=== PATIENT | female | born 1955 | race Caucasian/White ===

== ENCOUNTER 2016-07-16 14:00 | Outpatient (RCR) | payer MEDICAID ==
--- NOTE | 2016-07-02 11:46 | PT/OT/ST INITIAL EVALUATION ---
Department of Health and Human Services Form Approved Health Care Financing Administration OMB No. [id number] PLAN OF CARE/ASSESSMENT FOR OUTPATIENT REHABILITATION (Complete for Initial Claims Only) 1. PATIENT'S NAME Dinah Chen 2. ACC # [id number] 3. HICN NA 4. PROVIDER NO. [id number] 5. TYPE: PT 6. PRIOR HOSPITALIZATION NA 7. PRIMARY DX Left shoulder and neck pain 8. SECONDARY DX Left shoulder stiffness and weakness 9. ONSET DATE 1 year ago 10. REFERRAL DATE Referral not dated 11. SOC. DATE 06/29/2016 12. TIME OF EVAL 4:04 p.m. to 4:49 p.m. 12. REFERRING PHYSICIAN Doron Lin MD 13. CHARGES/UNITS PT evaluation moderate complexity 85149 Therapeutic exercise 70816, 1 unit 14. G CODES NA 15. PRIOR LEVEL OF FUNCTION; PERTINENT HISTORY (Prior therapy results, reason for referral.) S: Prior to therapy, the patient consented to today's evaluation and treatment. The patient is a 61-year-old female referred to physical therapy by Dr. Lin to address functional limitations secondary to left shoulder and neck pain. Primary Complaint/Mechanism of injury: The patient reports that she has had problems with her left shoulder for about a year. The patient states that it is gradually getting worse. The pain goes into her left forearm and states she has numbness and tingling from the forearm to the side of her face down into her left pec and into her left back. The patient reports there was no significant injury that she can recall. Functional performance/Prior level of function: The patient filled out the [employer] and it rates her as a 50. 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 Therapy History: None for her shoulder. Pain level: The patient rates a current pain level as a 5/10 and describes the pain as a constant ache and it gets to be almost unbearable at night. Obstacles to delivery of care: None noted. Aggravating factors: Include putting on a coat, reaching back behind her and rolling over. Relieving factors: None Diagnostic testing: None noted. Past medical history: Include having 2 mini strokes, depression which is controlled, hypertension which is controlled, left breast cancer 2 years ago in which she had lymph nodes removed and a lumpectomy with radiation and is on a pill for 5 years. The patient has an appointment with oncologist for a regular checkup with a mammogram next week. Past surgical history: Microdiskectomy, which bothers her at times, but nothing like it did before surgery which was about 3 years ago. Lymph node removal and lumpectomy on the left breast. Current medications: 1 or 2 1/4 pills of Percocet daily. A complete list in the chart including amlodipine, Crestor, cyanocobalamin, Dulera, ergocalciferol, letrozole, Lexapro, lorazepam, Metoprolol, oxycodone, Singulair, Vitron C and vitamin D. Leisure activities: Not listed. Activity level: Low. 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 She also tries to walk, but lately her shoulder hurts when she walks. Personal health rating: Listed as good. Patient's Goal: The patient's goal for physical therapy is to have less pain and to be able to walk for exercise. 16. INITIAL ASSESSMENT/SAFETY PRECAUTIONS/MEDICAL COMPLICATIONS (Level of function at start of care. Be specific, use objective measures, list problems.) O: APPEARANCE AND OBSERVATION: The patient presents to physical therapy with the diagnosis of left shoulder and neck pain. The patient is right handed. She states that she has been sleeping in a recliner for the last 5 years, originally due to her back and now it is more comfortable for her shoulder to sleep in the recliner. The patient is not able to walk for exercise because of the left shoulder bothering her. The patient's scapulae are asymmetrical with the left inferior angle sitting more superior and more lateral as compared to the right inferior angle. PALPATION: The patient is tender to palpate through the left scapula medial and inferior. SPECIAL TESTS: None. RANGE OF MOTION/FLEXIBILITY: Active range of motion of the shoulders, left shoulder flexion 147 degrees, abduction 139 degrees, external rotation to T2, and internal rotation to T8. Right shoulder flexion 147 degrees, abduction 160 degrees, external rotation 92 degrees and internal rotation 24 degrees. Cervical active range of motion flexion 40 degrees, extension 30 degrees, left side bending 12 degrees, right side bending 13 degrees. Left rotation 44 degrees, right rotation 58 degrees. STRENGTH: Manual muscle testing of the shoulders right shoulder flexion, abduction, and internal rotation 4/5. Right shoulder external rotation 4-/5. Left shoulder with observation is 3/5. TODAY'S TREATMENT: Included the initial PT evaluation followed by therapeutic exercise. 17. INITIAL POC: (Specify procedures, modalities, short and mcfp goals) A: The patient presents to physical therapy with the diagnosis of left shoulder and neck pain with functional limitations of left shoulder stiffness and weakness. 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 The patient would benefit from restoring proper motor control and muscle activation in order to lift moderately weighted items in order to return to activities. The patient is listed as a moderate complexity evaluation due to patient's history of breast cancer, as well as having both neck and shoulder pain. The patient is limited in her external and internal rotation, lacking full strength of the left shoulder and is unable to participate in exercise activities, such as walking. The patient's characteristics are gradually worsening. CONTRAINDICATIONS, PRECAUTIONS AND OBSTACLES TO DELIVERY OF CARE: The patient is not to have ultrasound due to a history of left breast cancer. INFORMED CONSENT: The prognosis and goals were discussed with the patient, as well as the expected outcome and possible risks. The patient agreed to undergo physical therapy evaluation and further treatment. SHORT TERM GOALS: 1. The patient is to have decreased in pain of the left shoulder and neck to less than or equal to 2/10 in 6 weeks in order to use the left arm to hold moderately weighted items at lunch without deviation. 2. The patient is to have an increase in manual muscle testing of the left shoulder to 4+/5 in 6 weeks in order lift objects that are moderately weighted for volunteer duties at lunch without deviation. 3. The patient is to have an increase in active range of motion of external rotation, and internal rotation of the left shoulder, as well as increasing left shoulder abduction to equal the right shoulder, which is 147 degrees of flexion, 160 degrees of abduction, 92 degrees of external rotation, and 24 degrees of internal rotation in 6 weeks in order to be able to put on a coat and perform self-care activity and reaching without deviation. 4. The patient is to be independent with a home exercise program. P: Plan to treat this patient 2 times a week for 6 weeks. Treatment to include modalities for pain and inflammation, however, not doing ultrasound. Manual therapy interventions, therapeutic exercise, active and passive range of motion, gait training, balance proprioceptive training, neural reeducation, and patient education and prescription of progressive home exercise program as tolerable. 18. FREQUENCY 2 times per week 19. DURATION 6 weeks. 20. FUNCTIONAL LEVEL (End of claim period) 21. PHYSICIAN SIGNATURE ? ON FILE OR ENTER HERE: 22. DATE: I certify the need for these services furnished under this plan of care and if for partial hospitalization. 23. CERTIFICATION FROM THROUGH FORM [id number]
== END 2016-07-22 12:00 | disposition home or self-care (01) ==
LOC: PT 14:00
PROVIDERS: ATTEND Family Medicine
DX: M25.512 Pain in left shoulder (principal); M54.2 Cervicalgia; M25.612 Stiffness of left shoulder, not elsewhere classified

== ENCOUNTER → 2016-07-16 | Outpatient (CLI) | payer MEDICAID ==
[~2016-07-16] MED LIST: ASCO1TAB22 PO; BISO1TAB6 PO; CEPH-507 PO; CNC1KV IM; ESCI20TA39 PO; FERR15DR22 PO; FERR325C PO; INDO25CA PO; LORA1TAB PO; LOSA100T8 PO; METO-274 PO; MNTL10T PO; MOME13HF IH; MONT10TA21 PO; OXYC1TAB87 PO; RABE20TA5 PO; ROSU20TA PO; ROSU5TAB PO
--- NOTE | 2016-07-16 19:14 | Diagnostic Imaging Report ---
INDICATION: Neck pain, right upper extremity radiculopathy with decreased range of motion. EXAMINATION: Cervical spine dated 07/16/2016. FINDINGS: Five views of the cervical spine. There is normal height and alignment of the vertebral bodies. Intervertebral disc space narrowing and anterior spurring is seen throughout the entire cervical spine. Prevertebral soft tissues appear unremarkable. Facet hypertrophy is noted throughout the entire cervical spine as well. No acute abnormalities appreciated. The visualized lung apices appear clear. IMPRESSION: 1. Diffuse multilevel degenerative disease as described. Dictated by: Dictated on workstation # [id number]
== END ==
LOC: RAD 15:10
PROVIDERS: ATTEND Family Medicine
DX: M54.2 Cervicalgia (principal)
CPT/HCPCS: 72050

== ENCOUNTER → 2016-07-18 | Outpatient (CLI) | payer MEDICAID ==
--- NOTE | 2016-07-18 18:52 | Diagnostic Imaging Report ---
DIGITAL MAMMO BILAT DIAGNOSTIC Comparison: Mammograms from 07/16/2013, 08/05/14 and 07/18/2015 Indication: Personal history of left breast cancer status post lumpectomy. Technique: Digital diagnostic mammography of bilateral breast was performed with a computer-aided detection (CAD) system. Findings: There are scattered fibroglandular densities. Stable architectural distortion in the left upper outer quadrant at the lumpectomy site. There is no progressive enlargement of the lumpectomy scar. No dominant mass, suspicious microcalcification or architectural distortion in either breast to suggest malignancy. Impression: No evidence of malignancy. Recommend followup screening mammogram in 6-12 months, as per clinical protocol. ACR BI-RADS Category 2: Benign findings. Result letter will be mailed to the patient. Note: At least 10% of breast cancer is not imaged by mammography. Dictated by: Dictated on workstation # [id number]
== END ==
LOC: RAD 13:57
PROVIDERS: ATTEND Surgery
DX: Z85.3 Personal history of malignant neoplasm of breast (principal)